=== PATIENT | female | born 1990 | race Caucasian/White ===

== ENCOUNTER 2018-10-28 22:34 | Emergency (ER) | payer SELFPAY ==
[~2018-10-28] VITALS: Ht 175.3 cm; Wt 93.0 kg
--- NOTE | 2018-10-28 22:34 | NUR ---
PT BIBA BLS, TAKEN TO BED 10
[2018-10-28 22:37] VITALS: BP 122/78
--- NOTE | 2018-10-28 22:40 | NUR ---
ASSUMED CARE OF PT AT THIS TIME. PT BIBA AND RECEIVED TO BED 10 VIA [facility]. C/O LOW BACK PAIN S/P MECHANICAL FALL OFF OF "HOVER BOARD." PT IS AAOX4; PATIENT STATES PAIN OF 10/10; VSS; PATIENT POSITIONED FOR COMFORT; HOB ELEVATED; BEDRAILS UP X2; BED DOWN. ER MD MADE AWARE OF PT STATUS. WILL CONTINUE TO MONITOR.
--- NOTE | 2018-10-28 22:51 | NUR ---
Dr. Wiggins evaluating patient at bedside.
[2018-10-28] MEDS ORDERED: ONDANSETRON 4 MG ODT PO ONE (22:55)
[2018-10-28] MEDS ORDERED: MORPHINE SULFATE 4 MG/ML SYR IM ONE (22:55)
--- NOTE | 2018-10-28 23:28 | NUR ---
PT TAKEN TO XRAY
--- NOTE | 2018-10-28 23:50 | NUR ---
PT RETURN FROM XRAY
--- NOTE | 2018-10-29 02:21 | NUR ---
PT TAKEN TO CT
--- NOTE | 2018-10-29 02:28 | NUR ---
PT RETURN FROM CT
[2018-10-29 03:05] VITALS: BP 118/74
--- NOTE | 2018-10-29 03:05 | NUR ---
Patient discharged with v/s stable. Written and verbal after care instructions given and explained. Patient alert, oriented and verbalized understanding of instructions. Ambulatory with to car. All questions addressed prior to discharge. ID band removed. Patient advised to follow up with PMD. Rx of ULTRAM AND ZOFRAN given. Patient educated on indication of medication including possible reaction and side effects. Opportunity to ask questions provided and answered.
== END 2018-10-29 03:05 | disposition home or self-care (01) ==
LOC: MED 22:34
DX: S39.012A Strain of muscle, fascia and tendon of lower back, initial encounter (principal); M25.552 Pain in left hip; M25.551 Pain in right hip; V00.181A Fall from other rolling-type pedestrian conveyance, initial encounter; Y93.89 Activity, other specified; Y92.89 Other specified places as the place of occurrence of the external cause; Y99.8 Other external cause status
CPT/HCPCS: 72170; 72192; 72220; 96372; 99284; J2270; Q0162